=== PATIENT | female | born 1980 | race Caucasian/White ===

== ENCOUNTER 2017-08-08 10:41 | Day surgery (SDC) | payer MEDICAID ==
[2017-08-08] MEDS ORDERED: Lactated Ringer's 1,000 ML IV ONE (13:38)
[2017-08-08] MEDS ORDERED: Lidocaine 1% Inj (20ml) ONE (13:51)
[2017-08-08] MEDS ORDERED: Midazolam 2 MG/2 ML VIAL ONE ×2 (13:57→14:06)
[2017-08-08] MEDS ORDERED: Propofol 10 mg/ml Inj (20 ML) ONE (14:08)
--- NOTE | 2017-08-08 14:38 | PCM.SURG1 ---
Surgeon's Initial Post Op Note - Surgeon's Notes Surgeon: Dr. Hernandez Care Transitions Nurse: Dr. Mancia PGY-3 Type of Anesthesia: IV Sedation, Local Pre-Operative Diagnosis: Foreign body x2 in right arm Operative Findings: grossly 2 pieces of glass removed from arm Post-Operative Diagnosis: Foreign body x2 in right arm Operation Performed: Removal of foreign body x2 from right arm Specimen/Specimens Removed: 2 pieces of glass Estimated Blood Loss: EBL {In ML}: 2 Blood Products Given: N/A Drains Used: No Drains Post-Op Condition: Good Date of Surgery/Procedure: 08/08/17 Time of Surgery/Procedure: 14:37
[2017-08-08] MEDS ORDERED: HYDROmorphone 0.5 mg/0.5 ml ISec IVP PRN (14:58)
[2017-08-08 15:57] VITALS: RESP 18
[2017-08-08 16:24] VITALS: BP 108/80; PULSE 72; TEMP 98.2; O2SAT 100
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
== END 2017-08-08 16:20 | disposition home or self-care (01) ==
LOC: C.SDS 10:41
PROVIDERS: ATTEND Specialist
DX: M79.5 Residual foreign body in soft tissue (principal)
CPT/HCPCS: 10120; 88300; J1170; J2250; J2704; J3010; J7120